=== PATIENT | male | born 2000 | race Caucasian/White ===

== ENCOUNTER 2023-06-03 13:13 | Emergency (ER) | payer SELFPAY ==
[2023-06-03 13:15] VITALS: BP 155/107; PULSE 93; RESP 16; TEMP 36.7; O2SAT 94; BMI 22.7
[2023-06-03 13:24] VITALS: BP 137/90; PULSE 79; RESP 16; O2SAT 98
[2023-06-03 13:26] VITALS: O2SAT 99
--- NOTE | 2023-06-03 13:40 | RAD_ITS ---
STUDY: X-RAY CHEST REASON FOR EXAM: Male, 22 years old. Chest pain TECHNIQUE: Single AP portable view of the chest. COMPARISON: None. FINDINGS: EKG electrodes are seen. The lungs are clear and expanded. There is no demonstrated pleural abnormality. Normal size heart. Normal mediastinum and christopher. Normal visualized pulmonary arteries. Normal visualized aortic arch and descending thoracic aorta. Normal visualized thoracic spine. Normal visualized ribs, clavicles, and shoulders. There is no demonstrated abnormality of the visualized soft tissue structures of the upper abdomen. RAD/Chest 1 View (Portable) IMPRESSION: Normal x-ray examination of the chest. Electronically Signed: Cecil Bonilla MD at 13:54 EST ,
--- NOTE | 2023-06-03 13:45 | NURSING ---
NO OLD EKGS
[2023-06-03 13:46] VITALS: O2SAT 99
[2023-06-03 13:47] LABS: Absolute Lymphocyte Count 1.96 X10^3/uL (0.83-4.51); Absolute Neutrophil Count 7.5 X10^3/uL (2.0-7.7); Basophil# 0.06 X10^3/uL; Basophil% 0.6 % (0-1); Eosinophil# 0.04 X10^3/uL; Eosinophils% 0.4 % (0-5); Hematocrit 46.6 % (40-54); Lymphocyte # 1.96 X10^3/ul (0.83-4.51); Lymphocyte % 18.6 % (19-41); Mean Corp Hgb Conc 34.3 g/dL (32-36); Mean Corpuscular Hgb 30.5 pg (27.0-32.0); Mean Corpuscular Volume 88.9 fL (80-94); Monocyte# 0.94 X10^3/uL; Monocyte% 8.9 % (0-10); NRBC Flagged by Analyzer 0 % (0-5); Neutrophil # 7.49 X10^3/uL (2.7-7.7); Neutrophil % 71.3 % (47-70); Platelet Count 272 K/mm3 (150-450); RBC Distribution Width CV 12.4 % (11.6-14.6); RBC Distribution Width SD 40.8 fl (35.1-43.9); Red Blood Count 5.24 M/mm3 (4.6-6.2); White Blood Count 10.5 K/mm3 (4.4-11.0)
[2023-06-03 14:03] LABS: Anion Gap 4 (5-15); BUN 9 mg/dL (7-18); BUN/Creat Ratio 8.9 RATIO (10-20); Chloride 110 mmol/L (98-107); Creatinine, Serum 1.01 mg/dL (0.70-1.30); EST Glomerular Filtration Rate 96 mL/min (>60); Est Glom Filt Rate - Afr Amer 116 mL/min (>60); Estimated Creatinine Clearance 121.48 ml/min; Glucose 110 mg/dL (74-106); Potassium 3.4 mmol/L (3.5-5.1); Sodium Level 140 mmol/L (136-145); Troponin-I HS (w/2H Reflex) 30 pg/mL (3.0-78.0)
[2023-06-03 14:14] VITALS: BP 128/64; PULSE 78; RESP 16; O2SAT 98
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
[2023-06-03 15:00] VITALS: BP 134/78; PULSE 64; RESP 16; TEMP 36.4; O2SAT 99
--- NOTE | 2023-06-03 15:04 | ED.RN ---
called rt. asked about inhaler was told that they are good to go and meds were given. clarified since meds were not scanned
[2023-06-03] MEDS: Albuterol Sulfate 8 gm Inhaler (60 puffs) 4 PUFF INHALATION (15:10)
[2023-06-03] MEDS: INHALER, ASSIST DEVICES 1 EACH SPACER INHALATION (15:12)
[2023-06-03 15:41] LABS: Reflex Troponin-HS? (from REC) Y
== END 2023-06-03 15:14 | disposition home or self-care (01) ==
LOC: ED 15:08
PROVIDERS: Emergency Provider Emergency Medicine; Visit Provider Emergency Medicine
DX: J98.01 Acute bronchospasm (principal); J68.9 Unspecified respiratory condition due to chemicals, gases, fumes and vapors; F17.210 Nicotine dependence, cigarettes, uncomplicated
CPT/HCPCS: 71045; 80048; 84484; 85025; 93005; 94640; 99285; A4216